=== PATIENT | male | born 1945 | race Caucasian/White ===

== ENCOUNTER → 2018-05-10 15:35 | Outpatient (CLI) | payer OTHER, SELFPAY ==
[2018-05-10 16:29] LABS: Add Manual Diff / Slide Review NO; Basophils Percent Auto 0.8 % (0-2); Eosinophils Percent Auto 3.4 % (2-4); Hematocrit 44.8 % (41-53); Hemoglobin 15.1 g/dL (13.5-17.5); Lymphocytes Percent Auto 25.1 % (25-40); Mean Corpuscular HGB Conc 33.6 % (30-36); Mean Corpuscular Hemoglobin 30.6 PG (26-34); Mean Corpuscular Volume 91.1 fL (80-100); Monocytes Percent Auto 8.4 % (3-14); Neutrophils Absolute Auto 6300 /uL (1500-7000); Neutrophils Percent Auto 62.3 % (50-75); Platelet Count 299 X10^3/uL (150-400); Red Blood Cell Count 4.92 X10^6/uL (4.5-5.9); Red Cell Distribution Width 13.5 % (11.6-14.8); White Blood Cell Count 10.1 X10^3/uL (4.5-11.0)
[2018-05-10 16:51] LABS: Hemoglobin A1C% w Est Avg Glu 6.7 % (4.0-6.0)
[2018-05-10 17:08] LABS: Alanine Aminotransferase 37 IU/L (21-72); Albumin 4.4 g/dL (3.5-5.0); Albumin Globulin Ratio 1.6 (1.0-2.8); Alkaline Phosphatase 72 U/L (38-126); Aspartate Aminotransferase 26 IU/L (17-59); Bilirubin Total 0.6 mg/dL (0.2-1.3); Blood Urea Nitrogen 20 mg/dL (9-20); Calcium 10.1 mg/dL (8.4-10.2); Carbon Dioxide 25 mmol/L (22-32); Chloride 106 mmol/L (98-107); Estimated Glomerular Filt Rate > 60.0 mL/min (>60); Globulin 2.7 g/dL (1.7-4.1); Glucose 85 mg/dL (80-110); HEMOLYSIS < 15 (0-50); Sodium 144 mmol/L (137-145); Total Protein 7.1 g/dL (6.3-8.2)
[2018-05-10 17:12] LABS: Creatinine Urine Random 74.2 mg/dL
[2018-05-10 17:13] LABS: Potassium 5.7 mmol/L (3.4-5.1)
[2018-05-10 17:16] LABS: Microalbumin Urine Random 0.6 mg/dL (0-1.6)
[2018-05-10 17:28] LABS: Vitamin D 25 Hydroxy (D3) 36.8 ng/mL (30.0-100.0)
[2018-05-10 17:39] LABS: Prostate Specific Antigen Scrn 1.23 ng/mL (0.1-4.0)
[2018-05-10 17:40] LABS: TSH w/ Reflex to FT4 4.45 uIU/mL (0.47-4.68)
[2018-05-10 17:57] LABS: Vitamin B12 > 1000 pg/mL (239-931)
== END ==
PROVIDERS: PCP Family Medicine; Visit Provider Student in an Organized Health Care Education/Training Program
DX: E11.9 Type 2 diabetes mellitus without complications (principal); G62.9 Polyneuropathy, unspecified; R35.1 Nocturia; I10 Essential (primary) hypertension; Z12.5 Encounter for screening for malignant neoplasm of prostate
CPT/HCPCS: 80053; 82043; 82306; 82570; 82607; 83036; 84443; 85025; G0103

== ENCOUNTER → 2019-05-07 10:33 | Outpatient (CLI) | payer OTHER, SELFPAY ==
[2019-05-07 11:39] LABS: Blood Urea Nitrogen 24 mg/dL (9-20); Calcium 10.1 mg/dL (8.4-10.2); Carbon Dioxide 23 mmol/L (22-32); Chloride 104 mmol/L (98-107); Estimated Glomerular Filt Rate > 60.0 mL/min (>60); Glucose 94 mg/dL (80-110); HEMOLYSIS 27 (0-50); Potassium 4.9 mmol/L (3.4-5.1); Sodium 137 mmol/L (137-145)
[2019-05-07 11:46] LABS: Hemoglobin A1C% w Est Avg Glu 6.2 % (4.0-6.0)
[2019-05-07 12:26] LABS: Creatinine Urine Random 83.6 mg/dL
[2019-05-07 12:31] LABS: Microalbumi Creatinin Ratio Ur 7.1 ug/mg CR (<30); Microalbumin Urine Random 0.6 mg/dL (0-1.6)
== END ==
PROVIDERS: PCP Student in an Organized Health Care Education/Training Program; Visit Provider Student in an Organized Health Care Education/Training Program
DX: E11.9 Type 2 diabetes mellitus without complications (principal); I10 Essential (primary) hypertension
CPT/HCPCS: 36415; 80048; 82043; 82570; 83036

== ENCOUNTER 2019-11-08 15:20 | Emergency (ER) | payer MEDICARE, SELFPAY ==
[2019-11-08 15:32] VITALS: BP 168/87; PULSE 74; RESP 21; TEMP 36.8; O2SAT 95; BMI 30.3
[2019-11-08] MEDS: SODIUM CHLORIDE 0.9% 1,000 ML 1000 ML IV ×2 (15:51→18:10)
[2019-11-08] MEDS: ONDANSETRON 4 MG/2 ML INJ IV (15:51)
--- NOTE | 2019-11-08 16:13 | ED_ITS ---
HPI - Nausea/Vomiting/Diarrhea <Tung Ramirez MD - Last Filed: 11/09/19 07:28> General Chief complaint: Nausea/Vomiting/Diarrhea Stated complaint: dehydrated, N/V/D Time Seen by Provider: 11/08/19 15:57 Source: patient Mode of arrival: Wheelchair Limitations: no limitations History of Present Illness HPI Narrative: CC: Nausea vomiting and diarrhea. HPI: The patient is a 74-year-old male who thinks that he may have some food poisoning. He states that he bought some sausage in left it in the car and than cooked it in aided 5 days ago. Since then he developed intermittent nausea vomiting associated with diarrhea. He was seen by Dr. Medina yesterday and diagnosed to have gastroenteritis. He states that he feels extremely hungry and has a raw feeling in his abdomen otherwise no abdominal cramps or abdominal pain and discomfort. He has had vomiting x1 without hematemesis or coffee-ground emesis but has had dry heaves. He states that he has had liquid bowel movements 4-5 episodes per day. He has not noted any blood or melena. He denies having C diff or being on any antibiotic recently. He has felt chills with sweats. He states that the diarrhea gets worse with eating. He states that if he eats something he immediately developed diarrhea. If he drinks fluid than he has a liquid fluid bowel movement. If he eats chicken broth his stool appears like chicken broth. He denies a history of ulcerative colitis, Crohn's disease, irritable bowel syndrome or diverticulosis. He denies a history of immune suppression any type of cancer lymphoma leukemia or autoimmune disease. He has had no significant back pains. He denies a history of hypertension stroke congestive heart failure myocardial infarction. He smoke cigarettes daily and drinks alcohol and uses marijuana. Related Data Home Medications Medication Instructions Recorded Confirmed Multivitamin, Minerals, and 1 tab PO QDAY #0 05/30/11 11/08/19 (#CENTRUM SILVER) Previous Rx's Medication Instructions Recorded pravastatin 20 mg tablet 20 mg PO BEDTIME #90 tab 05/27/19 tamsulosin 0.4 mg capsule 0.4 mg PO BEDTIME #90 cap 05/27/19 lisinopril 20 mg tablet 20 mg PO DAILY #90 tab 06/23/19 metformin 1,000 mg tablet 1,000 mg PO BID #180 tab 07/08/19 bupropion HCl 300 mg 24 hr tablet, 300 mg PO QAM #90 tab 10/14/19 extended release ciprofloxacin HCl 750 mg tablet 750 mg PO BID 5 Days #10 tab 11/07/19 ondansetron 8 mg disintegrating 8 mg PO Q8H PRN 7 Days #21 tab 11/07/19 tablet hyoscyamine sulfate 0.125 mg PO BID-QID PRN #20 tab 11/08/19 ondansetron 4 mg PO TID-QID PRN #10 tab 11/08/19 Allergies Allergy/AdvReac Type Severity Reaction Status Date / Time antipyrine Allergy Intermediate EAR SWELLED Verified 11/08/19 15:41 benzocaine Allergy Intermediate (OTIC Verified 11/08/19 15:41 DROPS) EAR SWELLED oxycodone AdvReac Mild NERVOUSNESS, Verified 11/08/19 15:41 JITTERY Review of Systems <Tung Ramirez MD - Last Filed: 11/09/19 07:28> Review of Systems Narrative: REVIEW OF SYSTEMS: CONSTITUTIONAL: The patient has chills and sweats but denies any fever. NEUROLOGICAL: He denies any headache numbness tingling paresthesias anesthesia is or paresis. EENT: He has had no change in vision loss of vision sore throat difficulty in swallowing CARDIO-PULMONARY: He has had no chest pain or cough as well as any palpitations but has felt dizzy without fainting and has had shortness of breath. GASTROINTESTINAL: Eating causes increased diarrhea and bowel movements. He has liquid diarrhea. If he drinks fluids or eats broth it goes rate straight through him without any substance. He has 4-5 liquid bowel movements per day that are large. He has vomited once but has had dry heaves without hematemesis or coffee-ground emesis. He has had no melena or hematochezia. He has had increased belching and burping with nausea. GENITAL URINARY: He has had no dysuria or urinary discomfort no frequency or u rgency. MUSCULOSKELETAL/ RHEUMATOLOGICAL: He has had no significant back pain DERMATOLOGICAL: No skin rash or bruising noted. Patient History <Tung Ramirez MD - Last Filed: 11/09/19 07:28> Medical History Arthritis (Chronic Unknown) Cataracts, bilateral (Chronic ~03/2017) GERD (gastroesophageal reflux disease) (Chronic Unknown) Surgical History Hx of hernia repair (Resolved Unknown) Hx of knee surgery (Resolved Unknown) Hx of tonsillectomy (Resolved Unknown) Hx of total knee arthroplasty (Resolved ~03/2014) Family History Father No problems noted. Mother No problems noted. Social History Smoking Status: Current every day smoker alcohol intake: current substance use type: marijuana Smoking Status: Current every day smoker alcohol intake frequency: 0-2 drinks per day Substance Use Type: marijuana Exam <Tung Ramirez MD - Last Filed: 11/09/19 07:28> Narrative Exam Narrative: PHYSICAL EXAM: CONSTITUTIONAL: Awake, Alert, Oriented, Coherent, Cooperative in NAD. Does not appear toxic or ill. The patient appears to be frustrated seems to have an attitude because I was asking so many questions to obtain the history. The patient is very social and talkative. HEAD: AT/NC EENT: PERRL, FROM of eyes, no discharge, no nystagmus NOSE:No epistaxis or nasal drainage MOUTH:Oral mucosa is moist and pink, posterior pharynx is without erythema or exudate. NECK: Supple, no obvious JVD, Trachea is midline without stridor, no palpable LN. SPINE: Palpationof the cervical, Thoracic, Lumbar or Sacral spine reveals no gross deformity or tenderness. No CVA tenderness. THORAX: No deformity, retractions, chest wall tenderness. LUNGS: Clear, symmetrical breath sounds without respiratory distress. HEART: Normal heart tones, regular rhythm and rate without murmur. ABDOMEN: Distended tympanitic no guarding rebound or rigidity. Bowel sounds are present. LYMPHATIC: no palpable lymph nodes or spleen. EXTREMITIES: No edema, deformity, tenderness or cyanosis. SKIN: No rash, bruising, petechiae or purpura. NEURO: Awake, alert, oriented, conversive, cranial nerves II-XII are symmetrical , moves all 4 extremities and is ambulatory. MENTAL HEALTH: Does not appear anxious or depressed. Initial Vital Signs Initial Vital Signs: Vital Signs Temperature 98.3 F 11/08/19 15:32 Pulse Rate 74 11/08/19 15:32 Respiratory Rate 21 11/08/19 15:32 Blood Pressure 168/87 H 11/08/19 15:32 Pulse Oximetry 95 11/08/19 15:32 <Stevie Walsh DO - Last Filed: 11/09/19 04:03> Initial Vital Signs Initial Vital Signs: Vital Signs Temperature 98.3 F 11/08/19 15:32 Pulse Rate 74 11/08/19 15:32 Respiratory Rate 21 11/08/19 15:32 Blood Pressure 168/87 H 11/08/19 15:32 Pulse Oximetry 95 11/08/19 15:32 Course <Tung Ramirez MD - Last Filed: 11/09/19 07:28> Course Course Narrative: 1751; the patient's three views of the abdomen revealed an abnormal bowel gas pattern that is most suggestive of a small-bowel ileus. A developing bowel obstruction cannot be completely excluded. A CT of the abdomen is recommended based on clinical grounds. 0: Report was given to Dr. Walsh. Orders Ordered: Discontinued Medications Dicyclomine HCl (Bentyl) 20 mg PO NOW ONE Stop: 11/08/19 16:51 Last Admin: 11/08/19 17:05 Dose: 20 mg Documented by: KARLY Sodium Chloride (Normal Saline 0.9%) 1,000 mls @ 1,000 mls/hr IV BOLUS ONE Stop: 11/08/19 16:43 Last Infusion: 11/08/19 17:04 Dose: 0 mls/hr Documented by: Admin: 11/08/19 15:51 Dose: 1,000 mls/hr Documented by: MANJEET Sodium Chloride (Normal Saline 0.9%) 1,000 mls @ 1,000 mls/hr IV BOLUS ONE Stop: 11/08/19 18:46 Last Infusion: 11/08/19 19:14 Dose: 0 mls/hr Documented by: Admin: 11/08/19 18:10 Dose: 1,000 mls/hr Documented by: WAN Ondansetron HCl (Zofran) 4 mg IV NOW ONE Stop: 11/08/19 15:45 Last Admin: 11/08/19 15:51 Dose: 4 mg Documented by: MANJEET Ondansetron HCl (Zofran Odt Prepack) 1 bottle MISC SEEINSTR ONE Stop: 11/08/19 20:05 Last Admin: 11/08/19 20:13 Dose: 1 bottle Documented by: ROSAURA Vital Signs Vital signs: Vital Signs - 8 hr 11/08/19 20:20 Pulse Rate 70 Respiratory Rate 18 Blood Pressure 145/70 H Pulse Oximetry 96 <Stevie Walsh, DO - Last Filed: 11/09/19 04:03> Course Course Narrative: Patient received in sign-out from Dr. Ramirez. Independent history and physical exam performed and no significant additions to his chart. CT unremarkable in suggests enteritis. Extensive discussion at the bedside with patient and his regarding clear liquid and then brat diet. Return precautions given and questions answered to their apparent satisfaction Orders Ordered: Discontinued Medications Dicyclomine HCl (Bentyl) 20 mg PO NOW ONE Stop: 11/08/19 16:51 Last Admin: 11/08/19 17:05 Dose: 20 mg Documented by: KARLY Sodium Chloride (Normal Saline 0.9%) 1,000 mls @ 1,000 mls/hr IV BOLUS ONE Stop: 11/08/19 16:43 Last Infusion: 11/08/19 17:04 Dose: 0 mls/hr Documented by: Admin: 11/08/19 15:51 Dose: 1,000 mls/hr Documented by: MANJEET Sodium Chloride (Normal Saline 0.9%) 1,000 mls @ 1,000 mls/hr IV BOLUS ONE Stop: 11/08/19 18:46 Last Infusion: 11/08/19 19:14 Dose: 0 mls/hr Documented by: Admin: 11/08/19 18:10 Dose: 1,000 mls/hr Documented by: WAN Ondansetron HCl (Zofran) 4 mg IV NOW ONE Stop: 11/08/19 15:45 Last Admin: 11/08/19 15:51 Dose: 4 mg Documented by: MANJEET Ondansetron HCl (Zofran Odt Prepack) 1 bottle MISC SEEINSTR ONE Stop: 11/08/19 20:05 Last Admin: 11/08/19 20:13 Dose: 1 bottle Documented by: ROSAURA Vital Signs Vital signs: Vital Signs - 8 hr 11/08/19 20:20 Pulse Rate 70 Respiratory Rate 18 Blood Pressure 145/70 H Pulse Oximetry 96 MDM - Nausea/Vomiting/Diarrhea <Tung Ramirez MD - Last Filed: 11/09/19 07:28> Medical Records Attestation: I reviewed the patient's medical records. Lab Data Attestation: I reviewed the patient's lab results. Result diagrams: 11/08/19 15:41 11/08/19 15:41 Labs: Lab Results 11/08/19 11/08/19 11/08/19 Range/Units 15:41 15:41 15:41 WBC 8.1 (4.5-11.0) X10^3/uL RBC 4.95 (4.5-5.9) X10^6/uL Hgb 15.3 (13.5-17.5) g/dL Hct 43.8 (41-53) % MCV 88.5 (80-100) fL MCH 30.9 (26-34) PG MCHC 34.9 (30-36) % RDW 13.5 (11.6-14.8) % Plt Count 306 (150-400) X10^3/uL Neut % (Auto) 53.3 (50-75) % Lymph % (Auto) 24.4 L (25-40) % Duchesne % (Auto) 19.3 H (3-14) % Eos % (Auto) 2.6 (2-4) % Baso % (Auto) 0.4 (0-2) % Neut # (Auto) 4300 (1493-3909) /uL Lymph # (Auto) 2000 (3242-5403) /uL Duc[place]ne # (Auto) 1600 H (0-900) /uL Eos # (Auto) 200 (0-450) /uL Baso # (Auto) 0 (0-100) /uL Sodium 132 L (137-145) mmol/L Potassium 3.6 (3.4-5.1) mmol/L Chloride 101 (98-107) mmol/L Carbon Dioxide 18 L (22-32) mmol/L BUN 23 H (9-20) mg/dL Creatinine 0.98 (0.66-1.25) mg/dL Estimated GFR > 60.0 (>60) mL/min BUN/Creatinine Ratio 23.5 H (6-22) Glucose 120 H (80-110) mg/dL Lactate (0.7-2.1) mmol/L Calcium 8.8 (8.4-10.2) mg/dL Magnesium (1.6-2.3) mg/dL Total Bilirubin 0.6 (0.2-1.3) mg/dL AST 22 (17-59) IU/L ALT 17 (<50) IU/L Alkaline Phosphatase 60 (38-126) U/L Total Creatine Kinase 73 (55-170) U/L CK-MB (CK-2) TNP CK-MB (CK-2) Rel Index TNP Troponin I < 0.012 (0.01-0.034) ng/mL Total Protein 6.5 (6.3-8.2) g/dL Albumin 3.6 (3.5-5.0) g/dL Globulin 2.9 (1.7-4.1) g/dL Albumin/Globulin Ratio 1.2 (1.0-2.8) Lipase (23-300) U/L TSH (0.47-4.68) uIU/mL 11/08/19 11/08/19 11/08/19 Range/Units 15:41 15:41 15:41 WBC (4.5-11.0) X10^3/uL RBC (4.5-5.9) X10^6/uL Hgb (13.5-17.5) g/dL Hct (41-53) % MCV (80-100) fL MCH (26-34) PG MCHC (30-36) % RDW (11.6-14.8) % Plt Count (150-400) X10^3/uL Neut % (Auto) (50-75) % Lymph % (Auto) (25-40) % Duchesne % (Auto) (3-14) % Eos % (Auto) (2-4) % Baso % (Auto) (0-2) % Neut # (Auto) (8253-4334) /uL Lymph # (Auto) (7135-5979) /uL Duchesne # (Auto) (0-900) /uL Eos # (Auto) (0-450) /uL Baso # (Auto) (0-100) /uL Sodium (137-145) mmol/L Potassium (3.4-5.1) mmol/L Chloride (98-107) mmol/L Carbon Dioxide (22-32) mmol/L BUN (9-20) mg/dL Creatinine (0.66-1.25) mg/dL Estimated GFR (>60) mL/min BUN/Creatinine Ratio (6-22) Glucose (80-110) mg/dL Lactate 0.6 L (0.7-2.1) mmol/L Calcium (8.4-10.2) mg/dL Magnesium 1.7 (1.6-2.3) mg/dL Total Bilirubin (0.2-1.3) mg/dL AST (17-59) IU/L ALT (<50) IU/L Alkaline Phosphatase (38-126) U/L Total Creatine Kinase (55-170) U/L CK-MB (CK-2) CK-MB (CK-2) Rel Index Troponin I (0.01-0.034) ng/mL Total Protein (6.3-8.2) g/dL Albumin (3.5-5.0) g/dL Globulin (1.7-4.1) g/dL Albumin/Globulin Ratio (1.0-2.8) Lipase 63 (23-300) U/L TSH 2.19 (0.47-4.68) uIU/mL ECG Data Attestation: I personally reviewed and interpreted this ECG as follows: Interpretation: The patient's EKG reveals a normal sinus rhythm with a ventricular rate of 77. The NJ interval was 156 QRS duration 88 milliseconds QTC is normal at 445 milliseconds axis is left axis deviation. The patient has small R waves in leads III and AVF with large S-waves. The patient has an inverted T-wave in lead III and V1. There are no other acute diagnostic ST segment changes. There are no ST segment changes to suggest ischemia or infarct at this time. <Stevie Walsh DO - Last Filed: 11/09/19 04:03> Lab Data Labs: Lab Results 11/08/19 11/08/19 11/08/19 Range/Units 15:41 15:41 15:41 WBC 8.1 (4.5-11.0) X10^3/uL RBC 4.95 (4.5-5.9) X10^6/uL Hgb 15.3 (13.5-17.5) g/dL Hct 43.8 (41-53) % MCV 88.5 (80-100) fL MCH 30.9 (26-34) PG MCHC 34.9 (30-36) % RDW 13.5 (11.6-14.8) % Plt Count 306 (150-400) X10^3/uL Neut % (Auto) 53.3 (50-75) % Lymph % (Auto) 24.4 L (25-40) % Duchesne % (Auto) 19.3 H (3-14) % Eos % (Auto) 2.6 (2-4) % Baso % (Auto) 0.4 (0-2) % Neut # (Auto) 4300 (4502-2202) /uL Lymph # (Auto) 2000 (5684-5536) /uL Duchesne # (Auto) 1600 H (0-900) /uL Eos # (Auto) 200 (0-450) /uL Baso # (Auto) 0 (0-100) /uL Sodium 132 L (137-145) mmol/L Potassium 3.6 (3.4-5.1) mmol/L Chloride 101 (98-107) mmol/L Carbon Dioxide 18 L (22-32) mmol/L BUN 23 H (9-20) mg/dL Creatinine 0.98 (0.66-1.25) mg/dL Estimated GFR > 60.0 (>60) mL/min BUN/Creatinine Ratio 23.5 H (6-22) Glucose 120 H (80-110) mg/dL Lactate (0.7-2.1) mmol/L Calcium 8.8 (8.4-10.2) mg/dL Magnesium (1.6-2.3) mg/dL Total Bilirubin 0.6 (0.2-1.3) mg/dL AST 22 (17-59) IU/L ALT 17 (<50) IU/L Alkaline Phosphatase 60 (38-126) U/L Total Creatine Kinase 73 (55-170) U/L CK-MB (CK-2) TNP CK-MB (CK-2) Rel Index TNP Troponin I < 0.012 (0.01-0.034) ng/mL Total Protein 6.5 (6.3-8.2) g/dL Albumin 3.6 (3.5-5.0) g/dL Globulin 2.9 (1.7-4.1) g/dL Albumin/Globulin Ratio 1.2 (1.0-2.8) Lipase (23-300) U/L TSH (0.47-4.68) uIU/mL 11/08/19 11/08/19 11/08/19 Range/Units 15:41 15:41 15:41 WBC (4.5-11.0) X10^3/uL RBC (4.5-5.9) X10^6/uL Hgb (13.5-17.5) g/dL Hct (41-53) % MCV (80-100) fL MCH (26-34) PG MCHC (30-36) % RDW (11.6-14.8) % Plt Count (150-400) X10^3/uL Neut % (Auto) (50-75) % Lymph % (Auto) (25-40) % Duchesne % (Auto) (3-14) % Eos % (Auto) (2-4) % Baso % (Auto) (0-2) % Neut # (Auto) (5283-3529) /uL Lymph # (Auto) (4844-3335) /uL Duchesne # (Auto) (0-900) /uL Eos # (Auto) (0-450) /uL Baso # (Auto) (0-100) /uL Sodium (137-145) mmol/L Potassium (3.4-5.1) mmol/L Chloride (98-107) mmol/L Carbon Dioxide (22-32) mmol/L BUN (9-20) mg/dL Creatinine (0.66-1.25) mg/dL Estimated GFR (>60) mL/min BUN/Creatinine Ratio (6-22) Glucose (80-110) mg/dL Lactate 0.6 L (0.7-2.1) mmol/L Calcium (8.4-10.2) mg/dL Magnesium 1.7 (1.6-2.3) mg/dL Total Bilirubin (0.2-1.3) mg/dL AST (17-59) IU/L ALT (<50) IU/L Alkaline Phosphatase (38-126) U/L Total Creatine Kinase (55-170) U/L CK-MB (CK-2) CK-MB (CK-2) Rel Index Troponin I (0.01-0.034) ng/mL Total Protein (6.3-8.2) g/dL Albumin (3.5-5.0) g/dL Globulin (1.7-4.1) g/dL Albumin/Globulin Ratio (1.0-2.8) Lipase 63 (23-300) U/L TSH 2.19 (0.47-4.68) uIU/mL Imaging Data CT scan - abdomen/pelvis: Radiologist's Impression: [address] [address] [address] Scan Report Signed Patient: Kelvin Casey JMR#: [id number] : [id number]:[id number] Age/Sex: 74 / MDate of Service: 11/08/19 Loc: ED Accession Number: [id number] Procedure: CT abdomen pelvis w con Ordering Provider: Tung Ramirez MD PROCEDURE: CT ABDOMEN PELVIS W CON INDICATIONS: abdominal distension, diarrhea, vomiting and dry heaves. TECHNIQUE: After the administration of intravenous contrast, 5 mm thick sections acquired from the diaphragm to the symphysis. 5 mm coronal and sagittal reformats were acquired. For radiation dose reduction, the following was used: automated exposure control, adjustment of mA and/or kV according to patient size. COMPARISON: None. FINDINGS: Image quality: Excellent. ABDOMEN: Lung bases: Lung bases are clear. Heart size is normal. Solid organs: Liver is normal in size and enhancement. Hepatic steatosis is seen. Gallbladder is distended, no gross gallbladder wall abnormality or calcified gallstone is seen.. Biliary system is non dilated. Pancreas enhances normally. Spleen is normal in size and enhancement. No adrenal nodules. Kidneys demonstrate normal size and enhancement, without hydronephrosis. 5.1 x 4.7 cm upper pole left renal cyst is seen. Peritoneum and bowel: There is no evidence of bowel obstruction. There is suggestion of mild small bowel wall thickening predominantly involving proximal small bowel loops in left side of abdomen. No significant colonic wall thickening. Appendix is visualized and is within normal limits. Small hiatal hernia is seen. No free fluid or free air. Nodes and vessels: No retroperitoneal or mesenteric adenopathy by size criteria. Aorta and inferior vena cava are normal in size. Miscellaneous: No ventral hernias. PELVIS: Genitourinary: Bladder wall thickness is normal. Miscellaneous: No inguinal adenopathy. Right larger than left bilateral inguinal hernia is seen containing fat only. Bones: No suspicious bony lesions. No vertebral body compression fractures. IMPRESSION: 1. Finding may represent mild enteritis. No evidence of bowel obstruction. No free fluid or free air. Normal appendix. 2. Hepatic steatosis. 3. Distended gallbladder, no calcified gallstones. No CT evidence of acute cholecystitis. Dictated by: Akin Gupta M.D. on 11/08/2019 at 19:32 Approved by: Akin Gupta M.D. on 11/08/2019 at 19:38 Discharge Plan Departure Patient Disposition: Home Clinical Impression: Eructation, Abdominal cramping, Abdominal bloating, Ileus Diarrhea Qualifiers: Diarrhea type: unspecified type Qualified Code(s): R19.7 - Diarrhea, unspecified Discharge Date/Time: 11/08/19 20:20 Instructions: DI for Nausea -- Adult, DI for Vomiting -- Adult, DI for Enteritis Activity Restrictions/Additional Instructions: 1. Drink plenty of fluids with frequent small sips. 2. For the next 24 hours a clear liquid diet is advised. After that please employ a brat diet which would include bananas, rice, apples, toast. 3. Please take medications as directed. 4. Please follow-up with your doctor in the next 1-2 days. Call the office for an appointment. 5. Please return to the emergency Department for any worsening or persistent symptoms, such as increasing pain or fever. Prescriptions: New hyoscyamine sulfate 0.125 mg tablet 0.125 mg PO BID-QID PRN (Reason: dyspepsia) Qty: 20 RF: 0 ondansetron 4 mg tablet,disintegrating 4 mg PO TID-QID PRN (Reason: nausea and vomiting) Qty: 10 RF: 0 No Action Multivitamin, Minerals, and (#CENTRUM SILVER) 1 tab PO QDAY Qty: 0 RF: 0 tamsulosin 0.4 mg capsule 0.4 mg PO BEDTIME Qty: 90 RF: 1 pravastatin 20 mg tablet 20 mg PO BEDTIME Qty: 90 RF: 1 lisinopril 20 mg tablet 20 mg PO DAILY Qty: 90 RF: 3 metformin 1,000 mg tablet 1,000 mg PO BID Qty: 180 RF: 3 bupropion HCl 300 mg tablet extended release 24 hr 300 mg PO QAM Qty: 90 RF: 1 ondansetron 8 mg tablet,disintegrating 8 mg PO Q8H PRN (Reason: nausea and vomiting) 7 Days Qty: 21 RF: 0 ciprofloxacin HCl 750 mg tablet 750 mg PO BID 5 Days Qty: 10 RF: 0 Referrals: Zach Galaviz MD [Primary Care Provider] -
[2019-11-08 16:31] LABS: Alanine Aminotransferase 17 IU/L (<50); Albumin 3.6 g/dL (3.5-5.0); Albumin Globulin Ratio 1.2 (1.0-2.8); Alkaline Phosphatase 60 U/L (38-126); Aspartate Aminotransferase 22 IU/L (17-59); BUN Creatinine Ratio 23.5 (6-22); Bilirubin Total 0.6 mg/dL (0.2-1.3); Blood Urea Nitrogen 23 mg/dL (9-20); Calcium 8.8 mg/dL (8.4-10.2); Carbon Dioxide 18 mmol/L (22-32); Chloride 101 mmol/L (98-107); Creatine Kinase 73 U/L (55-170); Estimated Glomerular Filt Rate > 60.0 mL/min (>60); Globulin 2.9 g/dL (1.7-4.1); Glucose 120 mg/dL (80-110); HEMOLYSIS < 15 (0-50); Potassium 3.6 mmol/L (3.4-5.1); Sodium 132 mmol/L (137-145); Total Protein 6.5 g/dL (6.3-8.2)
[2019-11-08 16:32] LABS: Add Manual Diff / Slide Review NO; Basophils Absolute Auto 0 /uL (0-100); Basophils Percent Auto 0.4 % (0-2); Eosinophils Absolute Auto 200 /uL (0-450); Eosinophils Percent Auto 2.6 % (2-4); Hematocrit 43.8 % (41-53); Hemoglobin 15.3 g/dL (13.5-17.5); Lactate (Lactic Acid) 0.6 mmol/L (0.7-2.1); Lymphocytes Absolute Auto 2000 /uL (1100-4500); Lymphocytes Percent Auto 24.4 % (25-40); Mean Corpuscular HGB Conc 34.9 % (30-36); Mean Corpuscular Hemoglobin 30.9 PG (26-34); Mean Corpuscular Volume 88.5 fL (80-100); Monocytes Absolute Auto 1600 /uL (0-900); Monocytes Percent Auto 19.3 % (3-14); Neutrophils Absolute Auto 4300 /uL (1500-7000); Neutrophils Percent Auto 53.3 % (50-75); Platelet Count 306 X10^3/uL (150-400); Red Blood Cell Count 4.95 X10^6/uL (4.5-5.9); Red Cell Distribution Width 13.5 % (11.6-14.8); White Blood Cell Count 8.1 X10^3/uL (4.5-11.0)
[2019-11-08 16:43] LABS: Lipase 63 U/L (23-300); Magnesium 1.7 mg/dL (1.6-2.3); Troponin I < 0.012 ng/mL (0.01-0.034)
[2019-11-08] MEDS: DICYCLOMINE 10 MG CAPSULE 20 MG PO (17:05)
[2019-11-08 17:06] VITALS: BP 153/74; PULSE 70; RESP 16; O2SAT 97
--- NOTE | 2019-11-08 17:13 | DI.RAD.S_ITS ---
PROCEDURE: XR ACUTE ABDOMEN SERIES INDICATIONS: abdominal cramps, diarrhea nausea and vomiting TECHNIQUE: One view chest and two views of the abdomen were acquired. COMPARISON: None. FINDINGS: Surgical changes and devices: None. Chest: Lungs are clear. Heart size is normal. No pleural effusions. No pneumoperitoneum. Abdomen: The bowel gas pattern is nonspecific. There are scattered borderline dilated the small bowel loops within the abdomen that are more prominent within the left abdomen. A few of these bowel loops are mildly dilated. Air and stool is seen within the colon. No suspicious calcifications. Visualized solid organ contours appear normal. Bones: No suspicious bony lesions. IMPRESSION: Abnormal bowel gas pattern is most suggestive of small bowel ileus. However, a developing bowel obstruction cannot be completely excluded. The need for CT imaging or followup imaging should be based on clinical grounds. Dictated by: Omar Varner M.D. on 11/08/2019 at 16:45 Approved by: Omar Varner M.D. on 11/08/2019 at 16:47
[2019-11-08 17:14] LABS: Thyroid Stimulating Hormone 2.19 uIU/mL (0.47-4.68)
--- NOTE | 2019-11-08 18:05 | DI.CT.S_ITS ---
PROCEDURE: CT ABDOMEN PELVIS W CON INDICATIONS: abdominal distension, diarrhea, vomiting and dry heaves. TECHNIQUE: After the administration of intravenous contrast, 5 mm thick sections acquired from the diaphragm to the symphysis. 5 mm coronal and sagittal reformats were acquired. For radiation dose reduction, the following was used: automated exposure control, adjustment of mA and/or kV according to patient size. COMPARISON: None. FINDINGS: Image quality: Excellent. ABDOMEN: Lung bases: Lung bases are clear. Heart size is normal. Solid organs: Liver is normal in size and enhancement. Hepatic steatosis is seen. Gallbladder is distended, no gross gallbladder wall abnormality or calcified gallstone is seen.. Biliary system is non dilated. Pancreas enhances normally. Spleen is normal in size and enhancement. No adrenal nodules. Kidneys demonstrate normal size and enhancement, without hydronephrosis. 5.1 x 4.7 cm upper pole left renal cyst is seen. Peritoneum and bowel: There is no evidence of bowel obstruction. There is suggestion of mild small bowel wall thickening predominantly involving proximal small bowel loops in left side of abdomen. No significant colonic wall thickening. Appendix is visualized and is within normal limits. Small hiatal hernia is seen. No free fluid or free air. Nodes and vessels: No retroperitoneal or mesenteric adenopathy by size criteria. Aorta and inferior vena cava are normal in size. Miscellaneous: No ventral hernias. PELVIS: Genitourinary: Bladder wall thickness is normal. Miscellaneous: No inguinal adenopathy. Right larger than left bilateral inguinal hernia is seen containing fat only. Bones: No suspicious bony lesions. No vertebral body compression fractures. IMPRESSION: 1. Finding may represent mild enteritis. No evidence of bowel obstruction. No free fluid or free air. Normal appendix. 2. Hepatic steatosis. 3. Distended gallbladder, no calcified gallstones. No CT evidence of acute cholecystitis. Dictated by: Akin Gupta M.D. on 11/08/2019 at 19:32 Approved by: Akin Gupta M.D. on 11/08/2019 at 19:38
[2019-11-08 18:43] VITALS: BP 164/81; PULSE 66; RESP 16; O2SAT 98
[2019-11-08 19:05] VITALS: BP 145/73; BP 149/78; BP 164/81; PULSE 71; PULSE 81
[2019-11-08 19:53] VITALS: BP 144/70; PULSE 68; RESP 16; O2SAT 97
[2019-11-08] MEDS: ONDANSETRON 4 MG ODT PREPACK 1 BOTTLE MISC (20:13)
[2019-11-08 20:20] VITALS: BP 145/70; PULSE 70; RESP 18; O2SAT 96
== END 2019-11-08 20:20 | disposition home or self-care (01) ==
PROVIDERS: Emergency Medicine; Emergency Provider Emergency Medicine; PCP Student in an Organized Health Care Education/Training Program
DX: R14.2 Eructation (principal); R10.9 Unspecified abdominal pain; R14.0 Abdominal distension (gaseous); R19.7 Diarrhea, unspecified; K56.7 Ileus, unspecified; R11.2 Nausea with vomiting, unspecified
CPT/HCPCS: 36415; 74022; 74177; 80053; 82550; 83605; 83690; 83735; 84443; 84484; 85025; 93005; 96361; 96374; 99284; J2405; Q9967

== ENCOUNTER → 2019-12-30 16:56 | Outpatient (CLI) | payer MEDICARE, SELFPAY | PROVIDERS: PCP Student in an Organized Health Care Education/Training Program; Visit Provider Student in an Organized Health Care Education/Training Program | DX: Z76.89 Persons encountering health services in other specified circumstances (principal) | CPT/HCPCS: 87070; 87075; 87077; 87205 ==

== ENCOUNTER → 2020-01-08 09:40 | Outpatient (CLI) | payer MEDICARE, SELFPAY ==
[2020-01-08 10:44] LABS: Hemoglobin A1C% w Est Avg Glu 6.7 % (4.0-6.0)
== END ==
PROVIDERS: PCP Student in an Organized Health Care Education/Training Program; Referring Provider Student in an Organized Health Care Education/Training Program; Visit Provider Student in an Organized Health Care Education/Training Program
DX: E11.9 Type 2 diabetes mellitus without complications (principal)
CPT/HCPCS: 36415; 83036

== ENCOUNTER → 2020-09-28 12:10 | Outpatient (CLI) | payer MEDICARE, SELFPAY ==
[2020-09-28 12:15] LABS: Bacteria Urine None Seen; RBC Urine None Seen (0-5/HPF); WBC Urine None Seen (0-5/HPF)
[2020-09-28 12:57] LABS: Add Manual Diff / Slide Review NO; Basophils Absolute Auto 100 /uL (0-100); Eosinophils Absolute Auto 500 /uL (0-450); Eosinophils Percent Auto 5.8 % (2-4); Hematocrit 41.1 % (41-53); Lymphocytes Absolute Auto 2100 /uL (1100-4500); Lymphocytes Percent Auto 24.5 % (25-40); Mean Corpuscular HGB Conc 34.1 % (30-36); Mean Corpuscular Hemoglobin 30.7 PG (26-34); Mean Corpuscular Volume 89.8 fL (80-100); Monocytes Absolute Auto 800 /uL (0-900); Monocytes Percent Auto 8.8 % (3-14); Neutrophils Absolute Auto 5200 /uL (1500-7000); Neutrophils Percent Auto 59.9 % (50-75); Platelet Count 278 X10^3/uL (150-400); Red Blood Cell Count 4.57 X10^6/uL (4.5-5.9); Red Cell Distribution Width 13.2 % (11.6-14.8); White Blood Cell Count 8.6 X10^3/uL (4.5-11.0)
[2020-09-28 13:07] LABS: Appearance Urine UA CLEAR; Bilirubin Urine UA NEGATIVE (NEGATIVE); Color Urine UA YELLOW; Glucose Urine UA NEGATIVE (Negative); Ketones Urine UA NEGATIVE (NEGATIVE); Leukocyte Esterase Urine UA NEGATIVE (NEGATIVE); Nitrite Urine UA NEGATIVE (Negative); Occult Blood Urine UA NEGATIVE (Negative); Protein Urine UA NEGATIVE (Negative); Specific Gravity Urine UA >=1.030 (1.000-1.035); Urobilinogen Urine UA 0.2 E.U./dL (0.2)
[2020-09-28 13:08] LABS: Hemoglobin A1C% w Est Avg Glu 7.1 % (4.0-6.0)
[2020-09-28 13:13] LABS: BUN Creatinine Ratio 18.8 (6-22); Blood Urea Nitrogen 16 mg/dL (9-20); Calcium 9.6 mg/dL (8.4-10.2); Carbon Dioxide 20 mmol/L (22-32); Chloride 104 mmol/L (98-107); Estimated Glomerular Filt Rate > 60.0 mL/min (>60); Glucose 205 mg/dL (80-110); HEMOLYSIS < 15 (0-50); Potassium 4.3 mmol/L (3.4-5.1); Sodium 134 mmol/L (137-145)
[2020-09-28 13:27] LABS: Culture Indicated Urine Cult Not Indicated; Urine Comments Microscopic Normal
[2020-09-28 15:27] LABS: Creatinine Urine Random 78.5 mg/dL
[2020-09-28 15:32] LABS: Microalbumin Urine Random < 0.6 mg/dL (0-1.6)
[2020-09-28 17:42] LABS: TSH w/ Reflex to FT4 3.07 uIU/mL (0.47-4.68)
== END ==
PROVIDERS: PCP Student in an Organized Health Care Education/Training Program; Referring Provider Student in an Organized Health Care Education/Training Program; Visit Provider Student in an Organized Health Care Education/Training Program
DX: E11.9 Type 2 diabetes mellitus without complications (principal); G62.9 Polyneuropathy, unspecified; N40.1 Benign prostatic hyperplasia with lower urinary tract symptoms; R33.8 Other retention of urine; R35.0 Frequency of micturition
CPT/HCPCS: 36415; 80048; 81001; 82043; 82570; 83036; 84443; 85025

== ENCOUNTER → 2020-11-03 10:20 | Outpatient (CLI) | payer MEDICARE, SELFPAY ==
--- NOTE | 2020-11-03 10:21 | DI.US.S_ITS ---
PROCEDURE: US RENAL COMPLETE INDICATIONS: Nocturia TECHNIQUE: Real-time scanning was performed of the kidneys and bladder, with image documentation. COMPARISON: None. FINDINGS: Kidneys: Kidneys are normal in size. Right kidney measures 13.2 cm long; left kidney measures 13.5 cm long. Right renal cortical thickness is 2.0 cm; left renal cortical thickness is 1.9 cm. Renal cortical echotexture is normal. No hydronephrosis or nephrolithiasis. No suspicious solid mass lesions. A single echogenic focus is present within the cortex of the right kidney, nonshadowing, likely vascular calcification. There is an upper pole renal cortical cyst on the left measuring up to 4.4 x 5.6 x 6.3 cm. Bladder: Pre-void bladder volume is 395 mL. Post-void residual is 0 mL. Pre-void images demonstrate no intraluminal masses or stones. On pre-void images, neither ureteral jets are noted with color Doppler interrogation. (Of note, ureteral jets may not be detectable in up to 25% of cases due to insufficient differences in specific gravity between ureteral and bladder urine). Miscellaneous: No free pelvic fluid. IMPRESSION: Single punctate focus of nonshadowing echogenicity within the cortex of the right kidney, likely vascular calcification rather than an unusually positioned collecting system calculus. Elsewhere the bilateral kidneys show no abnormality. Normal bladder function. Dictated by: Duncan Coyle M.D. on 11/03/2020 at 11:39 Approved by: Duncan Coyle M.D. on 11/03/2020 at 11:59
== END ==
PROVIDERS: PCP Student in an Organized Health Care Education/Training Program; Referring Provider Student in an Organized Health Care Education/Training Program; Visit Provider Student in an Organized Health Care Education/Training Program
DX: N40.1 Benign prostatic hyperplasia with lower urinary tract symptoms (principal); R35.0 Frequency of micturition; R33.8 Other retention of urine; R35.1 Nocturia
CPT/HCPCS: 76770

== ENCOUNTER → 2021-04-28 16:20 | Outpatient (CLI) | payer MEDICARE, SELFPAY ==
[2021-04-28 17:35] LABS: Hemoglobin A1C% w Est Avg Glu 7.2 % (4.0-6.0)
[2021-04-28 18:51] LABS: BUN Creatinine Ratio 14.6 (6-22); Blood Urea Nitrogen 15 mg/dL (9-20); Estimated Glomerular Filt Rate > 60.0 mL/min (>60)
== END ==
PROVIDERS: PCP Student in an Organized Health Care Education/Training Program; Referring Provider Student in an Organized Health Care Education/Training Program; Visit Provider Student in an Organized Health Care Education/Training Program
DX: E11.9 Type 2 diabetes mellitus without complications (principal)
CPT/HCPCS: 36415; 82565; 83036; 84520

== ENCOUNTER → 2021-06-27 09:51 | Outpatient (CLI) | payer MEDICARE, SELFPAY ==
[2021-06-27 11:07] LABS: COVID19 -Nasal RAPID Negative (Negative)
== END ==
PROVIDERS: PCP Student in an Organized Health Care Education/Training Program; Visit Provider Family Medicine Sleep Medicine
DX: Z20.822 Contact with and (suspected) exposure to COVID-19 (principal)
CPT/HCPCS: 87635; C9803

== ENCOUNTER 2021-06-28 07:02 | Day surgery (SDC) | payer MEDICARE, SELFPAY ==
[2021-06-28 07:52] VITALS: BP 144/70; PULSE 60; RESP 14; TEMP 36.3; O2SAT 98; BMI 34.2
[2021-06-28] MEDS: PROPARACAINE 0.5% OPHTH SOL 2 DROPS EYE-OP (08:23)
[2021-06-28] MEDS: CATARACT EYE COMPOUND (10 DROPS/SYRINGE) 3 DROPS EYE-OP (08:29)
--- NOTE | 2021-06-28 09:15 | P.OP.PRE_ITS ---
Pre-operative Note Interval Note History & Physical reviewed/Exam performed by Physician: Yes Changes to H&P: No Addendum Addendum Note: there are no non surgical alternatives to the patient's condition. Deteriora tion of the patient's condition is expected. Delay may result in more complex future surgery.
--- NOTE | 2021-06-28 09:16 | PM.OP.1 ---
Operative Date/Time/Diagnoses Pre-op diagnosis: Nuclear cataract right eye Procedure & Clinicians Procedure: Cataract Surgery Same procedure as scheduled: Yes Surgeon: Lauri Rogers Anesthesia Type: MAC +/- and Sedation Operative Notes Procedure in detail: Patient brought to the operating suite. Tetracaine drops placed in the right eye. Patient was prepped and draped in sterile manner. Wire lid speculum was placed in the eye. Betadine drops were placed on the eye. This was irrigated. Lidocaine jelly was placed on the eye. A paracentesis port was created with a side-port blade. 0.1 mL 1% preservative free lidocaine was injected into the anterior chamber. The anterior chamber was deepened with viscoelastic. 2.6 mm keratome was used to create a temporal clear corneal incision. Cystotome and Utrata forceps were used to create continuous tear capsulorrhexis. Balanced salt solution was used to hydro dissect the nucleus. The phacoemulsification handpiece was inserted and the nucleus was removed using the stop and chop technique. The irrigation aspiration handpiece was inserted and the remaining cortex was removed. Anterior chamber was deepened with viscoelastic. An Bauer DIB00 intraocular lens with a power of 20.0 was injected into the capsular bag. Irrigation aspiration handpiece was inserted and the remaining viscoelastic was removed. Incision was hydrated with balanced salt solution and found to be leak free with pressure with Weck-Susana sponges. 0.1 mL Vigamox injected anterior chamber. 0.3 mL Kenalog 10 mg was injected subconjunctivally. Lid speculum was removed. The patient left the operating room in excellent condition. Complications: none Post-operative Condition: stable Disposition: same day surgery
[2021-06-28] MEDS: HYALURONATE SODIUM 30 MG-10 MG/ML SYRINGES 1 BOX INTRAOCULA (09:34)
[2021-06-28] MEDS: BALANCED SALT IRRIG SOLN NO.2 500 ML, EPINEPHrine 1 MG IRR (09:35)
[2021-06-28] MEDS: MOXIFLOXACIN INJ 4 MG/0.8 ML VIAL 0.5 MG EYE-OP (09:35)
[2021-06-28] MEDS: TRIAMCINOLONE 50 MG/5 ML VIAL INJ (09:35)
[2021-06-28] MEDS: PHENYLEPHRINE/LIDOCAINE VIAL (OR) 0.2 ML EYE-OP (09:35)
[2021-06-28] MEDS: TETRACAINE 0.5% OPHTH DROPS 4 ML 2 DROPS EYE-OP (09:36)
[2021-06-28] MEDS: LIDOCAINE 2% (GLYDO) 6 ML GEL TOP (09:36)
[2021-06-28 09:59] VITALS: BP 131/74; PULSE 65; RESP 16; TEMP 36.4; O2SAT 98
--- NOTE | 2021-06-28 10:08 | SUR.PHASEII ---
Pt ready to go, getting car, pt left unit in stable condition.
== END 2021-06-28 10:08 | disposition home or self-care (01) ==
PROVIDERS: PCP Student in an Organized Health Care Education/Training Program; Referring Provider Ophthalmology; Visit Provider Ophthalmology
PROC: (CPT 66984; principal; 2021-06-28 09:15)
DX: H25.11 Age-related nuclear cataract, right eye (principal); E11.9 Type 2 diabetes mellitus without complications; K21.9 Gastro-esophageal reflux disease without esophagitis
CPT/HCPCS: 66984; J0171; J2250; J3301

== ENCOUNTER → 2021-07-11 14:04 | Outpatient (CLI) | payer MEDICARE, SELFPAY ==
[2021-07-11 16:07] LABS: COVID19 -Nasal RAPID Negative (Negative)
== END ==
PROVIDERS: PCP Student in an Organized Health Care Education/Training Program; Visit Provider Family Medicine Sleep Medicine
DX: Z20.822 Contact with and (suspected) exposure to COVID-19 (principal)
CPT/HCPCS: 87635; C9803

== ENCOUNTER 2021-07-12 07:04 | Day surgery (SDC) | payer MEDICARE, SELFPAY ==
[2021-07-12] MEDS: PROPARACAINE 0.5% OPHTH SOL 2 DROPS EYE-OP ×2 (07:50→08:36)
[2021-07-12 08:02] VITALS: BP 145/75; PULSE 60; RESP 16; TEMP 36.4; O2SAT 100; BMI 35.6
--- NOTE | 2021-07-12 09:07 | PM.PREOP ---
Pre-operative Note Interval Note History & Physical reviewed/Exam performed by Physician: Yes Changes to H&P: No
--- NOTE | 2021-07-12 09:07 | PM.OP.1 ---
Operative Date/Time/Diagnoses Pre-op diagnosis: Nuclear Cataract Left eye Post-op diagnosis: same Procedure & Clinicians Same procedure as scheduled: Yes Surgeon: Lauri Rogers Anesthesia Type: MAC +/- and Sedation Operative Notes Procedure in detail: Patient brought to the operating suite. Tetracaine drops placed in the left eye. Patient was prepped and draped in sterile manner. Wire lid speculum was placed in the eye. Betadine drops were placed on the eye. This was irrigated. Lidocaine jelly was placed on the eye. A paracentesis port was created with a side-port blade. 0.1 mL 1% preservative free lidocaine was injected into the anterior chamber. The anterior chamber was deepened with viscoelastic. 2.6 mm keratome was used to create a temporal clear corneal incision. Cystotome and Utrata forceps were used to create continuous tear capsulorrhexis. Balanced salt solution was used to hydro dissect the nucleus. The phacoemulsification handpiece was inserted and the nucleus was removed using the stop and chop technique. The irrigation aspiration handpiece was inserted and the remaining cortex was removed. Anterior chamber was deepened with viscoelastic. An Bauer DIB00 intraocular lens with a power of 19.5 was injected into the capsular bag. Irrigation aspiration handpiece was inserted and the remaining viscoelastic was removed. Incision was hydrated with balanced salt solution and found to be leak free with pressure with Weck-Ssuana sponges. 0.1 mL Vigamox injected anterior chamber. 0.3 mL Kenalog 10 mg was injected subconjunctivally. Lid speculum was removed. The patient left the operating room in excellent condition. Complications: none Post-operative Condition: stable Disposition: same day surgery
[2021-07-12] MEDS: HYALURONATE SODIUM 30 MG-10 MG/ML SYRINGES 1 BOX INTRAOCULA (09:25)
[2021-07-12] MEDS: PHENYLEPHRINE/LIDOCAINE VIAL (OR) 0.2 ML EYE-OP (09:26)
[2021-07-12] MEDS: TETRACAINE 0.5% OPHTH DROPS 4 ML 2 DROPS EYE-OP (09:26)
[2021-07-12] MEDS: MOXIFLOXACIN INJ 4 MG/0.8 ML VIAL 0.5 MG EYE-OP (09:26)
[2021-07-12] MEDS: BALANCED SALT IRRIG SOLN NO.2 500 ML, EPINEPHrine 1 MG IRR (09:27)
[2021-07-12] MEDS: LIDOCAINE 2% (GLYDO) 6 ML GEL TOP (09:27)
[2021-07-12] MEDS: TRIAMCINOLONE 50 MG/5 ML VIAL INJ (09:27)
[2021-07-12 09:55] VITALS: BP 142/88; PULSE 70; RESP 16; TEMP 36.1; O2SAT 99
== END 2021-07-12 09:57 | disposition home or self-care (01) ==
PROVIDERS: PCP Student in an Organized Health Care Education/Training Program; Referring Provider Ophthalmology; Visit Provider Ophthalmology
PROC: (CPT 66984; principal; 2021-07-12 09:15)
DX: H25.12 Age-related nuclear cataract, left eye (principal); E11.9 Type 2 diabetes mellitus without complications; Z79.84 Long term (current) use of oral hypoglycemic drugs
CPT/HCPCS: 66984; J0171; J2250; J3301

== ENCOUNTER → 2022-01-12 07:59 | Outpatient (CLI) | payer MEDICARE, SELFPAY ==
[2022-01-12 11:30] LABS: Hemoglobin A1C% w Est Avg Glu 7.6 % (4.0-6.0)
[2022-01-12 11:50] LABS: BUN Creatinine Ratio 16.7 (6-22); Blood Urea Nitrogen 15 mg/dL (9-20); Cholesterol 202 mg/dL (140-199); Estimated Glomerular Filt Rate > 60 mL/min (>60); HDL Cholesterol 46 mg/dL (40-60); LDL Cholesterol Calculated 119 mg/dL (<100); Triglycerides 184 mg/dL (35-150)
[2022-01-12 11:50] LABS: Microalbumin Urine Random 1.5 mg/dL (0-1.6)
[2022-01-12 11:52] LABS: Creatinine Urine Random 163.2 mg/dL; Microalbumi Creatinin Ratio Ur 9.1 ug/mg CR (<30)
== END ==
PROVIDERS: PCP Student in an Organized Health Care Education/Training Program; Referring Provider Student in an Organized Health Care Education/Training Program; Visit Provider Student in an Organized Health Care Education/Training Program
DX: E11.69 Type 2 diabetes mellitus with other specified complication (principal); E78.5 Hyperlipidemia, unspecified; I10 Essential (primary) hypertension
CPT/HCPCS: 36415; 80061; 82043; 82565; 82570; 83036; 84520

== ENCOUNTER → 2022-06-26 10:05 | Outpatient (CLI) | payer MEDICARE, SELFPAY ==
[2022-06-26 11:09] LABS: Hemoglobin A1C% w Est Avg Glu 7.4 % (4.0-6.0)
[2022-06-26 11:52] LABS: BUN Creatinine Ratio 19.6 (6-22); Blood Urea Nitrogen 18 mg/dL (9-20); Calcium 9.3 mg/dL (8.4-10.2); Carbon Dioxide 26 mmol/L (22-32); Chloride 99 mmol/L (98-107); Estimated Glomerular Filt Rate > 60 mL/min (>60); Glucose 180 mg/dL (80-110); HEMOLYSIS < 15 (0-50); Potassium 4.6 mmol/L (3.4-5.1); Sodium 132 mmol/L (137-145)
== END ==
PROVIDERS: PCP Student in an Organized Health Care Education/Training Program; Referring Provider Student in an Organized Health Care Education/Training Program; Visit Provider Student in an Organized Health Care Education/Training Program
DX: E11.9 Type 2 diabetes mellitus without complications (principal)
CPT/HCPCS: 36415; 80048; 83036

== ENCOUNTER → 2022-12-27 10:37 | Outpatient (CLI) | payer MEDICARE, SELFPAY ==
[2022-12-27 11:56] LABS: Creatinine Urine Random 98.5 mg/dL
[2022-12-27 12:00] LABS: Microalbumi Creatinin Ratio Ur 16.2 ug/mg CR (<30); Microalbumin Urine Random 1.6 mg/dL (0-1.6)
[2022-12-27 12:06] LABS: BUN Creatinine Ratio 24.7 (6-22); Blood Urea Nitrogen 21 mg/dL (9-20); Calcium 9.2 mg/dL (8.4-10.2); Carbon Dioxide 23 mmol/L (22-32); Chloride 103 mmol/L (98-107); Estimated Glomerular Filt Rate > 60 mL/min (>60); Glucose 169 mg/dL (80-110); HEMOLYSIS 25 (0-50); Potassium 4.5 mmol/L (3.4-5.1); Sodium 134 mmol/L (137-145)
[2022-12-27 12:45] LABS: TSH w/ Reflex to FT4 1.19 uIU/mL (0.47-4.68)
[2022-12-28 05:13] LABS: Labcorp Hemoglobin (Hb) A1c 6.4 % (4.8-5.6)
== END ==
PROVIDERS: PCP Student in an Organized Health Care Education/Training Program; Referring Provider Pediatrics; Visit Provider Pediatrics
DX: E11.9 Type 2 diabetes mellitus without complications (principal); E87.1 Hypo-osmolality and hyponatremia; I10 Essential (primary) hypertension
CPT/HCPCS: 36415; 80048; 82043; 82570; 83036; 84443

== ENCOUNTER → 2023-06-13 07:28 | Outpatient (CLI) | payer OTHER, SELFPAY ==
[2023-06-13 08:30] LABS: Hemoglobin A1C% w Est Avg Glu 6.3 % (4.0-6.0)
[2023-06-13 08:35] LABS: Alanine Aminotransferase 22 IU/L (<50); Albumin 3.8 g/dL (3.5-5.0); Albumin Globulin Ratio 1.3 (1.0-2.8); Alkaline Phosphatase 57 U/L (38-126); Aspartate Aminotransferase 23 IU/L (17-59); BUN Creatinine Ratio 21.3 (6-22); Bilirubin Total 0.7 mg/dL (0.2-1.3); Blood Urea Nitrogen 20 mg/dL (9-20); Calcium 9.4 mg/dL (8.4-10.2); Carbon Dioxide 26 mmol/L (22-32); Chloride 106 mmol/L (98-107); Cholesterol 180 mg/dL (140-199); Estimated Glomerular Filt Rate > 60 mL/min (>60); Globulin 2.9 g/dL (1.7-4.1); Glucose 148 mg/dL (80-110); HDL Cholesterol 56 mg/dL (40-60); HEMOLYSIS < 15 (0-50); LDL Cholesterol Calculated 107 mg/dL (<100); Potassium 4.9 mmol/L (3.4-5.1); Sodium 135 mmol/L (137-145); Total Protein 6.7 g/dL (6.3-8.2); Triglycerides 86 mg/dL (35-150)
[2023-06-13 09:54] LABS: Creatinine Urine Random 60.6 mg/dL
[2023-06-13 10:24] LABS: Microalbumin Urine Random < 0.6 mg/dL (0-1.6)
[2023-06-14 17:43] LABS: Hep C Virus Ab w/Reflex Quant NEGATIVE s/c (NEGATIVE)
== END ==
PROVIDERS: PCP Family Medicine; Referring Provider Family Medicine; Visit Provider Family Medicine
DX: E11.9 Type 2 diabetes mellitus without complications (principal); E11.69 Type 2 diabetes mellitus with other specified complication; E78.5 Hyperlipidemia, unspecified; Z11.59 Encounter for screening for other viral diseases
CPT/HCPCS: 36415; 80053; 80061; 82043; 82570; 83036; 86803

== ENCOUNTER → 2024-01-09 09:31 | Outpatient (CLI) | payer MEDICARE, SELFPAY ==
[2024-01-09 11:11] LABS: BUN Creatinine Ratio 18.6 (6-22); Blood Urea Nitrogen 16 mg/dL (9-20); Carbon Dioxide 20 mmol/L (22-32); Chloride 103 mmol/L (98-107); Cholesterol 165 mg/dL (140-199); Estimated Glomerular Filt Rate > 60 mL/min (>60); Glucose 119 mg/dL (80-110); HDL Cholesterol 53 mg/dL (40-60); HEMOLYSIS < 15 (0-50); LDL Cholesterol Calculated 85 mg/dL (<100); Potassium 4.9 mmol/L (3.4-5.1); Sodium 131 mmol/L (137-145); Triglycerides 135 mg/dL (35-150)
[2024-01-09 20:50] LABS: Hemoglobin A1C% w Est Avg Glu 5.8 % (4.0-6.0)
== END ==
PROVIDERS: PCP Family Medicine; Referring Provider Family Medicine; Visit Provider Family Medicine
DX: E11.9 Type 2 diabetes mellitus without complications (principal); I10 Essential (primary) hypertension; E11.69 Type 2 diabetes mellitus with other specified complication; E78.5 Hyperlipidemia, unspecified
CPT/HCPCS: 36415; 80048; 80061; 83036

== ENCOUNTER → 2024-07-01 09:33 | Outpatient (CLI) | payer OTHER, SELFPAY ==
[2024-07-01 10:22] LABS: Hematocrit 41.9 % (41-53); Hemoglobin 14.2 g/dL (13.5-17.5); Mean Corpuscular Hemoglobin 30.9 PG (26-34); Mean Corpuscular Volume 91.1 fL (80-100); Platelet Count 305 X10^3/uL (150-400); Red Cell Distribution Width 13.2 % (11.6-14.8)
[2024-07-01 10:34] LABS: Hemoglobin A1C% w Est Avg Glu 6.6 % (4.0-6.0)
[2024-07-01 10:45] LABS: Blood Urea Nitrogen 16 mg/dL (9-20); Calcium 9.5 mg/dL (8.4-10.2); Carbon Dioxide 22 mmol/L (22-32); Chloride 103 mmol/L (98-107); Cholesterol 188 mg/dL (140-199); Estimated Glomerular Filt Rate > 60 mL/min (>60); Glucose 144 mg/dL (80-110); HDL Cholesterol 54 mg/dL (40-60); HEMOLYSIS < 15 (0-50); LDL Cholesterol Calculated 106 mg/dL (<100); Potassium 4.4 mmol/L (3.4-5.1); Sodium 131 mmol/L (137-145); Triglycerides 141 mg/dL (35-150)
[2024-07-01 11:10] LABS: Vitamin D 25 Hydroxy (D3) 35.3 ng/mL (30.0-100.0)
[2024-07-01 11:52] LABS: Creatinine Urine Random 84.66 mg/dL
[2024-07-01 11:56] LABS: Microalbumin Urine Random 0.6 mg/dL (0-1.6)
== END ==
PROVIDERS: PCP Family Medicine; Referring Provider Family Medicine; Visit Provider Family Medicine
DX: Z13.21 Encounter for screening for nutritional disorder (principal); Z13.9 Encounter for screening, unspecified; E11.3291 Type 2 diabetes mellitus with mild nonproliferative diabetic retinopathy without macular edema, right eye; I10 Essential (primary) hypertension; E11.69 Type 2 diabetes mellitus with other specified complication; E78.5 Hyperlipidemia, unspecified; F32.2 Major depressive disorder, single episode, severe without psychotic features
CPT/HCPCS: 36415; 80048; 80061; 82043; 82306; 82570; 83036; 85027

== ENCOUNTER → 2025-04-27 08:27 | Outpatient (CLI) | payer OTHER, SELFPAY ==
[2025-04-27 08:50] LABS: Hematocrit 43.0 % (41-53); Hemoglobin 14.8 g/dL (13.5-17.5); Mean Corpuscular HGB Conc 34.4 % (30-36); Mean Corpuscular Hemoglobin 31.0 PG (26-34); Mean Corpuscular Volume 90.2 fL (80-100); Platelet Count 324 X10^3/uL (150-400)
[2025-04-27 09:01] LABS: Hemoglobin A1C% w Est Avg Glu 6.7 % (4.0-6.0)
[2025-04-27 09:20] LABS: Alanine Aminotransferase 24 IU/L (<50); Albumin 4.2 g/dL (3.5-5.0); Albumin Globulin Ratio 1.6 (1.0-2.8); Alkaline Phosphatase 61 U/L (38-126); Blood Urea Nitrogen 19 mg/dL (9-20); Calcium 9.6 mg/dL (8.4-10.2); Carbon Dioxide 22 mmol/L (22-32); Chloride 105 mmol/L (98-107); Cholesterol 188 mg/dL (140-199); Estimated Glomerular Filt Rate > 60 mL/min (>60); Globulin 2.7 g/dL (1.7-4.1); Glucose 154 mg/dL (70-99); HDL Cholesterol 59 mg/dL (40-60); HEMOLYSIS < 15 (0-50); Potassium 4.8 mmol/L (3.4-5.1); Sodium 136 mmol/L (137-145); Total Protein 6.9 g/dL (6.3-8.2); Triglycerides 156 mg/dL (35-150)
== END ==
PROVIDERS: PCP Family Medicine; Referring Provider Family Medicine; Visit Provider Family Medicine
DX: E11.69 Type 2 diabetes mellitus with other specified complication (principal); E11.3291 Type 2 diabetes mellitus with mild nonproliferative diabetic retinopathy without macular edema, right eye; E78.5 Hyperlipidemia, unspecified; F32.2 Major depressive disorder, single episode, severe without psychotic features; I10 Essential (primary) hypertension
CPT/HCPCS: 36415; 80053; 80061; 83036; 85027